=== PATIENT | male | born 2000 | race Caucasian/White ===

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

== ENCOUNTER 2022-08-20 03:55 | Emergency (ER) | payer BC ==
[2022-08-20 04:02] VITALS: TEMP 97.7
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
[2022-08-20] MEDS: IBUPROFEN 600 MG TAB PO STA ×2 (05:08→06:19)
[2022-08-20] MEDS ORDERED: ACETAMINOPHEN TAB 500 MG TAB PO STA (05:10)
[2022-08-20] MEDS ORDERED: ONDANSETRON 4 MG TAB PO STA (05:10)
[2022-08-20] MEDS ORDERED: IBUPROFEN 600 MG TAB PO STA (06:14)
[2022-08-20 06:34] VITALS: BP 112/68; PULSE 70; RESP 16
== END 2022-08-20 06:34 | disposition home or self-care (01) ==
LOC: EC 03:55
DX: S01.511A Laceration without foreign body of lip, initial encounter (principal); F17.290 Nicotine dependence, other tobacco product, uncomplicated; Y08.09XA Assault by strike by other specified type of sport equipment, initial encounter
CPT/HCPCS: 99283